=== PATIENT | male | born 1955 | race Caucasian/White ===

== ENCOUNTER → 2019-02-02 | Outpatient (CLI) | payer BC ==
--- NOTE | 2019-02-02 09:28 | Diagnostic Imaging Report ---
INDICATION: Left wrist pain. TIME OF EXAMINATION: 9:06 AM. TECHNIQUE: Multiple views of the left wrist were obtained. FINDINGS: There are significant degenerative changes at the first CMC joint with joint space narrowing and marginal spurring. The carpus is otherwise unremarkable. The distal radius and ulna are intact. The metacarpals appear intact. No fractures are seen. IMPRESSION: First CMC joint degenerative change. No other significant abnormality is detected. Dictated by: Dictated on workstation # [id number]
--- NOTE | 2019-02-02 10:22 | Diagnostic Imaging Report ---
INDICATION: Left foot injury and pain. Time of exam: 9:43 AM Multiple views of the left foot were obtained. The metatarsals appear intact. Phalanges are intact. Midfoot and hindfoot are unremarkable apart from a plantar calcaneal spur. No fractures are seen. IMPRESSION: No acute bony abnormality is detected. Dictated by: Dictated on workstation # [id number]
== END ==
LOC: RAD FS 09:00
PROVIDERS: ATTEND Nurse Practitioner
DX: S99.922A Unspecified injury of left foot, initial encounter (principal); M18.12 Unilateral primary osteoarthritis of first carpometacarpal joint, left hand
CPT/HCPCS: 73110; 73630

== ENCOUNTER → 2019-09-11 | Outpatient (CLI) | payer BC, MEDICARE ==
[2019-09-11 10:47] LABS: HEMATOCRIT 44 % (40-54); HEMOGLOBIN 14.4 G/DL (13.3-17.7); MEAN CORPUSCULAR HEMOGLOBIN 31 PG (25-34); MEAN CORPUSCULAR HGB CONC 33 G/DL (32-36); MEAN CORPUSCULAR VOLUME 95 FL (80-99); WHITE BLOOD COUNT 11.3 10^3/uL (4.3-11.0)
[2019-09-11 10:48] LABS: BASOPHILS # (AUTO) 0.1 10^3/uL (0.0-0.1); BASOPHILS % (AUTO) 1 % (0-10); EOSINOPHILS # (AUTO) 0.3 10^3/uL (0.0-0.3); EOSINOPHILS % (AUTO) 3 % (0-10); LYMPHOCYTES # (AUTO) 3.3 X 10^3 (1.0-4.0); LYMPHOCYTES % (AUTO) 29 % (12-44); MEAN PLATELET VOLUME 10.3 FL (7.4-10.4); MONOCYTES # (AUTO) 0.8 X 10^3 (0.0-1.0); MONOCYTES % (AUTO) 7 % (0-12); NEUTROPHILS # (AUTO) 6.8 X 10^3 (1.8-7.8); NEUTROPHILS % (AUTO) 60 % (42-75); PLATELET COUNT 266 10^3/uL (130-400); RED CELL DISTRIBUTION WIDTH 13.6 % (10.0-14.5)
--- NOTE | 2019-09-11 10:54 | Diagnostic Imaging Report ---
INDICATION: Community-acquired pneumonia. COMPARISON: None available. TECHNIQUE: Two radiographs of the chest dated 09/11/2019. FINDINGS: The cardiac silhouette is within normal limits in size. No significant pulmonary vascular congestion. The lungs are clear. No pleural effusion. No pneumothorax. No acute osseous abnormality. IMPRESSION: No acute cardiopulmonary abnormality. Dictated by: Dictated on workstation # [id number]
== END ==
LOC: RAD FS 09:57
PROVIDERS: ATTEND Family Medicine
DX: J18.8 Other pneumonia, unspecified organism (principal)
CPT/HCPCS: 36415; 71046; 85025

== ENCOUNTER → 2020-07-26 | Outpatient (CLI) | payer MEDICARE, BC ==
[2020-07-26 08:52] LABS: SODIUM 141 MMOL/L (135-145)
[2020-07-26 08:53] LABS: BUN/CREATININE RATIO 13; CARBON DIOXIDE 28 MMOL/L (21-32); CHLORIDE 104 MMOL/L (98-107); CREATININE SERUM 1.15 MG/DL (0.60-1.30); GFR ESTIMATED > 60; POTASSIUM 3.8 MMOL/L (3.6-5.0)
[2020-07-26 08:54] LABS: ALANINE AMINOTRANSFERASE 27 U/L (0-55); ALKALINE PHOSPHATASE 67 U/L (40-136); BILIRUBIN,TOTAL 0.7 MG/DL (0.1-1.0); CALCIUM 9.1 MG/DL (8.5-10.1); GLUCOSE 133 MG/DL (70-105); TOTAL PROTEIN 7.2 GM/DL (6.4-8.2)
[2020-07-26 15:19] LABS: CHOLESTEROL 132 MG/DL (< 200); HDL CHOLESTEROL 28 MG/DL (40-60); TRIGLYCERIDES 152 MG/DL (<150); VLDL CHOLESTEROL 30 MG/DL (5-40)
== END ==
LOC: LAB FS 08:01
PROVIDERS: ATTEND Family Medicine
DX: Z12.5 Encounter for screening for malignant neoplasm of prostate (principal); E78.5 Hyperlipidemia, unspecified
CPT/HCPCS: 36415; 80053; 80061; G0103; 84153

== ENCOUNTER → 2022-06-05 | Outpatient (CLI) | payer MEDICARE, BC ==
--- NOTE | 2022-06-05 20:09 | Diagnostic Imaging Report ---
INDICATION: Neck pain. Time of Exam: 1:49 PM Lateral neutral view as well as flexion and extension lateral views were obtained. An AP view was obtained. A neutral view does show normal curvature and alignment of the cervical spine. No subluxation is seen. There is degenerative disc disease at C5-C6 and C6-C7 levels with significant disc space narrowing and marginal spurring. Flexion-extension views show no evidence of motion. Prevertebral tissues are normal. No fractures are seen. IMPRESSION: Cervical spondylosis. No abnormal motion is identified during flexion or extension maneuvers. Dictated by: Dictated on workstation # [id number]
== END ==
LOC: RAD FS 13:24
PROVIDERS: ATTEND Nurse Practitioner
DX: M47.812 Spondylosis without myelopathy or radiculopathy, cervical region (principal)
CPT/HCPCS: 72050